=== PATIENT | female | born 1975 | race Caucasian/White ===

== ENCOUNTER 2017-05-19 12:45 | Emergency (ER) | END 2017-05-19 14:18 | disposition home or self-care (01) ==

== ENCOUNTER 2017-05-22 01:08 | Inpatient (IN) | END 2017-05-25 13:06 | disposition left against medical advice (07) | DRG 152 ==

== ENCOUNTER 2017-05-29 21:18 | Emergency (ER) | END 2017-05-30 | disposition home or self-care (01) ==

== ENCOUNTER 2018-05-04 00:38 | Emergency (ER) | payer BC, MEDICAID ==
[~2018-05-04] VITALS: Ht 152.4 cm; Wt 64.6 kg
[~2018-05-04 00:38] MED LIST: AMLO5TAB4 PO; AMOX1TAB9 PO; ASPI-817 PO; ATOR20TA38 PO; CIPR7.5D RIGHT EAR; CYCL10TA7 PO; IBUP800T48 PO
[2018-05-04 00:53] VITALS: Ht 152.4 cm; Wt 64.6 kg
--- NOTE | 2018-05-04 06:06 | ERD ---
ER Documentation Chief Complaint Chief Complaint pain right side of face/right earache x 2 days. no neuro deficit HPI This is a 43-year-old female who presents emergency department with complaints of right ear pain, right sinus pain, and cough for about 2 days. LMP: 04/27/2017. M2. Denies headache, head injury, loss of consciousness, dizziness, neck pain, neck stiffness, throat pain, difficulty swallowing, difficulty breathing lying flat, shoulder pain, chest pain, back pain, abdominal pain, nausea, vomiting, constipation, diarrhea, urinary symptoms, or possibility being , loss of bowel and bladder control, trauma, injury, falls, difficulty walking due to pain, numbness or tingling sensation, calf pain, recent travel, recent major surgery in the last 3 weeks, calf pain, recent long travel, recent exposure to any illness, recent antibiotic use in the last 3 months, fever, chills, seizures. Past medical history: Hypertension. Surgical history: Social: Denies smoking, use of alcoholic beverages, use of illegal drugs. ROS All systems reviewed and are negative except as per history of present illness. Medications Home Meds Active Scripts Benzonatate* (Tessalon Perle*) 100 Mg Capsule, 100 MG PO Q8H PRN for COUGH, #15 CAP Prov:TAYA NESBITT 05/04/18 Ibuprofen* (Motrin*) 600 Mg Tab, 600 MG PO Q6H PRN for PAIN AND OR ELEVATED TEMP, #30 TAB Prov:TAYA NESBITT 05/04/18 Amoxicillin/Potassium Clav (Amox-Clav 875-125 mg Tablet) 875-125 mg Tab, 1 TAB P O BID for 10 Days, #20 TAB Prov:TAYA NESBITT 05/04/18 Cyclobenzaprine Hcl* (Cyclobenzaprine Hcl*) 10 Mg Tablet, 10 MG PO TID, #15 TAB Prov:MARLY LINDER. FOOD SERVICES DIRECTOR 05/29/17 Ibuprofen* (Motrin*) 800 Mg Tab, 800 MG PO Q6H PRN for PAIN AND OR ELEVATED TEMP, #30 TAB Prov:MARLY LINDER. FOOD SERVICES DIRECTOR 05/29/17 Ciprofloxacin Hcl/Dexameth (Ciprodex Otic Suspension) 7.5 Ml Drops.susp, 4 DROP RIGHT EAR BID for 7 Days, EA Prov:DAMON SEQUEIRA 05/24/17 Amoxicillin/Potassium Clav (Amox-Clav 500-125 mg Tablet) 500-125 mg Tab, 500 MG PO BID for 10 Days, TAB Prov:DAMON SEQUEIRA 05/24/17 Atorvastatin Calcium* (Atorvastatin Calcium*) 20 Mg Tab, 20 MG PO DAILY for 30 Days, TAB 3 Refills Prov:DAMON SEQUEIRA 06/24/15 Aspirin* (Aspirin* EC) 81 Mg Tabec, 81 MG PO DAILY for 30 Days Prov:DAMON SEQUEIRA 06/24/15 Amlodipine Besylate* (Norvasc*) 5 Mg Tablet, 5 MG PO DAILY, #20 TAB Prov:DOMINICK SILVER DO 05/22/15 Allergies Allergies: Coded Allergies: No Known Allergy (Verified , 06/23/15) PMhx/Soc History of Surgery: Yes () Anesthesia Reaction: No Hx Neurological Disorder: No Hx Respiratory Disorders: No Hx Cardiac Disorders: Yes (HTN, HYPERLIPIDEMIA) Hx Psychiatric Problems: No Hx Miscellaneous Medical Probl: No Hx Alcohol Use: No Hx Substance Use: No Hx Tobacco Use: No Smoking Status: Never smoker Physical Exam Vitals Vital Signs Date Temp Pulse Resp B/P (MAP) Pulse Ox O2 O2 Flow FiO2 Time Delivery Rate 05/04/18 96.0 72 20 164/80 100 Room Air 06:23 (108) 05/04/18 98.4 78 18 170/90 98 00:53 (116) Physical Exam Const: No acute distress Head: Atraumatic. Scalp is intact. No vesicular lesion. Eyes: Normal Conjunctiva. No pain in eye movement. ENT: Normal External Ears, Nose and Mouth. Right ear: TM is erythematous. No bleeding. No discharge. No mastoid tenderness. Left ear: TM is not erythematous. No bleeding. No discharge. Nose: There right sided frontal and maxillary sinus tenderness to palpation. Throat: Uvula is in midline and non-displaced. Tonsils are +1 with redness but no exudates. Tolerating secretion. Patent airway. Speaks full and clear sentences. Neck: Full range of motion. No meningismus. Resp: Clear to auscultation bilaterally Cardio: Regular rate and rhythm, no murmurs Abd: Soft, non tender, non distended. Normal bowel sounds Skin: No petechiae or rashes Back: No midline or flank tenderness Ext: No cyanosis, or edema Neur: Awake and alert. No facial droop. No numbness or tingling sensation. Equal orthopedic shoe fitter. Equal strength on bilateral upper and lower extremities. Romberg test is negative. No neurological deficits. Psych: Normal Mood and Affect Results 24 hrs Current Medications Medications Dose Sig/Pranav Start Time Status Last (Trade) Ordered Route PRN Stop Time Admin Dose Reason Admin 1 tab ONCE ONCE 05/04/18 DC 05/04/18 Acetaminophen PO 06:30 06:18 / 05/04/18 06:30 Hydrocodone Bitart ([place] ()) Procedures/MDM Offered diagnostic tests but patient strongly refused. Also stated that she will take her Lisinopril as soon as she gets home. Diagnostic tests: Clinical exam. Treatment: [place]. Re-evaluation: Denies pain. Blood pressure has improved. No neurological deficits. Differential diagnosis I have low suspicion for subarachnoid hemorrhage, stroke, meningitis, periton sillar abscess. Final diagnosis: Bronchitis. Sinusitis. Otitis media. Prescription: Augmentin. Motrin. Tessalon Perles. Follow-up with PCP in the next 24-48 hours. Come back here in the emergency department for any new symptoms or any worsening symptoms. All questions and concerns were answered. Patient and family members verbalized understanding and agreed with plan of care. Hemodynamically stable on discharge. Departure Diagnosis: Primary Impression: Otitis media Additional Impressions: Sinusitis Bronchitis Condition: Stable Additional Instructions: Follow-up with PCP in the next 24-48 hours. Come back here in the emergency department for any new symptoms or any worsening symptoms. TAYA NESBITT May 04, 2018 06:06
[2018-05-04] MEDS ORDERED: AMOX1TAB10 PO (06:07)
[2018-05-04] MEDS ORDERED: IBUP-1542 PO (06:07)
[2018-05-04] MEDS ORDERED: BENZ-6 PO (06:08)
[2018-05-04 06:23] VITALS: BP 164/80; PULSE 72; RESP 20
[2018-05-04] MEDS ORDERED: HYDROCODONE/APAP (10/325) TAB PO ONE (06:30)
== END 2018-05-04 06:27 | disposition home or self-care (01) ==
LOC: FTE 00:38
DX: H66.91 Otitis media, unspecified, right ear (principal); J40 Bronchitis, not specified as acute or chronic; J32.9 Chronic sinusitis, unspecified; I10 Essential (primary) hypertension; R40.2142 Coma scale, eyes open, spontaneous, at arrival to emergency department; R40.2252 Coma scale, best verbal response, oriented, at arrival to emergency department; R40.2362 Coma scale, best motor response, obeys commands, at arrival to emergency department; Z79.82 Long term (current) use of aspirin
CPT/HCPCS: 99283